=== PATIENT | female | born 1995 | race Caucasian/White ===

== ENCOUNTER 2020-11-13 21:59 | Emergency (ER) | payer BC ==
[~2020-11-13] VITALS: Ht 162.6 cm; Wt 79.8 kg
[2020-11-13 22:17] VITALS: Ht 162.6 cm; Wt 79.8 kg
[2020-11-13 22:35] LABS: BASOPHIL % 0.7 % (0.2-1.3); PLATELET COUNT 295 x10^3mcL (179-408); RED CELL DISTRIBUTION WIDTH 13.5 % (12.3-17.7)
[2020-11-14 00:04] VITALS: BP 109/74
== END 2020-11-13 23:54 | disposition home or self-care (01) ==
LOC: ED 21:59
PROVIDERS: Emergency Medicine
DX: O03.9 Complete or unspecified spontaneous abortion without complication (principal); Z3A.01 Less than 8 weeks gestation of pregnancy